=== PATIENT | male | born 1945 | race Caucasian/White ===

== ENCOUNTER 2020-05-11 11:48 | Day surgery (SDC) | payer MEDICARE, MEDICAID ==
[~2020-05-11] VITALS: Ht 182.9 cm; Wt 100.0 kg
[2020-05-11 12:34] LABS: HEMATOCRIT 42.1 % (42.0-54.0); HEMOGLOBIN 13.6 g/dL (13.5-17.5); MCH 28.5 pg (26.0-34.0); MCHC 32.3 g/dL (31.0-37.0); MCV 88.1 fL (80.0-100.0); MEAN PLATELET VOLUME 9.7 fL (7.4-10.4); RBC 4.78 10x6/uL (4.20-6.10); RDW 13.9 % (11.5-14.5); WBC 6.2 10x3/uL (4.8-10.8)
[2020-05-11 12:47] LABS: ANION GAP 11.6 mmol/L (8-16); CALCIUM 8.6 mg/dL (8.5-10.1); CARBON DIOXIDE 28.3 mmol/L (21.0-32.0); CREATININE - SERUM 1.1 mg/dL (0.6-1.3); POTASSIUM - SERUM 3.9 mmol/L (3.5-5.1)
[2020-05-11] MEDS ORDERED: FUROSEMIDE20 MG PO (13:10)
[2020-05-11] MEDS ORDERED: OMEPRAZOLE20 M1 PO (13:10)
[2020-05-11] MEDS ORDERED: K-TAB10 MEQ PO (13:11)
[2020-05-11] MEDS ORDERED: NAMENDA10 MG PO (13:11)
[2020-05-11] MEDS ORDERED: COREG6.25 MG (13:12)
[2020-05-11] MEDS ORDERED: PROSCAR5 MG PO (13:12)
[2020-05-11] MEDS ORDERED: BAYER CHEWABLE81 MG PO (13:13)
[2020-05-11] MEDS ORDERED: PACERONE200 MG PO (13:13)
[2020-05-11] MEDS ORDERED: LIPITOR40 MG PO (13:14)
[2020-05-11] MEDS ORDERED: NIACIN100 MG PO (13:15)
[2020-05-11] MEDS ORDERED: MOBIC7.5 MG PO (13:16)
[2020-05-11] MEDS ORDERED: ZANAFLEX4 MG PO (13:16)
[2020-05-11] MEDS ORDERED: CIALIS2.5 MG PO (13:17)
[2020-05-11 13:29] VITALS: Ht 182.9 cm; Wt 100.0 kg
--- NOTE | 2020-05-11 15:02 | NUR ---
DC INSTRUCTIONS GIVEN TO PATIENT AND SPOUSE. VERBALIZES UNDERSTANDING. PIV REMOVED WITH CATHETER INTACT.
--- NOTE | 2020-05-11 15:19 | NUR ---
1510 PATIENT LEFT ROOM VIA WC ACCOMPANIED BY BLANCA ROUSSEAU AND PATIENT SPOUSE. DISCHARGE PAPERS IN HAND, SPOUSE DRIVING.
--- NOTE | 2020-05-12 15:15 | OP ---
PATIENT NAME: MAURA GUERRIER MEDICAL RECORD: [id number] :49 LOCATION:[facility] ADMISSION DATE: SURGEON: ALEX SEPULVEDA MD DATE OF OPERATION: 05/11/2020 PROCEDURE: Colonoscopy. PREOPERATIVE DIAGNOSES: Positive Cologuard, abnormal barium enema, history of polyps. MEDICATION: Propofol per anesthesia. DESCRIPTION OF PROCEDURE: Colonoscopy was performed. The colonoscope was inserted through the rectum and advanced to the cecum, identified by the ileocecal valve and the appendiceal orifice. The quality of the prep was good. There were multiple sigmoid diverticula visualized in the sigmoid colon. The remainder of the exam was normal. There were nonbleeding internal hemorrhoids viewed on retroflexion along with hypertrophied anal papilla. FINAL DIAGNOSES: Sigmoid diverticula, nonbleeding internal hemorrhoids, hypertrophied anal papilla. PLAN: Advance diet. Return to GI office. Repeat colonoscopy in 3-5 years given history of polyps. TRANSINT:[id number] Voice Confirmation ID: [id number] DOCUMENT ID: [id number] ALEX SEPULVEDA MD at 1515 CC: [id number] DICTATION DATE: 05/11/20 1433 ENGINE SERVICE REPAIRER: 05/11/20 [id number] [facility] 05/11/20 [id number] [place] [address]
== END 2020-05-11 15:10 | disposition home or self-care (01) ==
LOC: D.OPS 11:48
PROVIDERS: Anesthesiology; ATTEND Internal Medicine Gastroenterology
DX: R19.5 Other fecal abnormalities (principal); R93.3 Abnormal findings on diagnostic imaging of other parts of digestive tract; Z86.010 Personal history of colon polyps; K57.30 Diverticulosis of large intestine without perforation or abscess without bleeding; K64.8 Other hemorrhoids; K62.89 Other specified diseases of anus and rectum